=== PATIENT | female | born 1985 | race Caucasian/White ===

== ENCOUNTER 2016-11-19 16:59 | Emergency (ER) | payer MEDICAID ==
[~2016-11-19] VITALS: Wt 54.0 kg
[~2016-11-19 16:59] MED LIST: ATEN-51 PO; CIPR500T4 PO; HYDR-3498 PO; IBUP-1542 PO; NPH10OT BOTH EARS; PRED50TA PO; PROM6.25 PO
[2016-11-19] MEDS ORDERED: MECL-77 PO (18:02)
--- NOTE | 2016-11-19 18:04 | ERA ---
ER Documentation Chief Complaint Date/Time DATE: 11/19/16 TIME: 18:03 Chief Complaint dizziness today, HPI 31-year-old otherwise healthy female presenting with dizziness 2 days. Telugu -speaking and the [employer] Mis[employer] was the verification lead. Patient denies fever, ear pain , hearing loss, recent illness, medical history, new medications, change in diet , syncope, presyncope. Patient denies any alleviating or aggravating factors. Patient has no other complaints at this time. Patient is 3 weeks . ROS All systems reviewed and are negative except as per history of present illness. Medications Home Meds Active Scripts Meclizine Hcl* (Meclizine Hcl*) 25 Mg Tablet, 25 MG PO Q8H Y for DIZZINESS for 14 Days, TAB Prov:JOANIE TURNER PA-C 11/19/16 Hydrocodone Bit-Acetaminophen* (Dupree*) 5-325 Mg Tab, 1 TAB PO Q6 Y for PAIN, # 7 TAB Prov:TRUDY CHAPARRO PA-C 01/21/16 Ciprofloxacin Hcl* (Ciprofloxacin Hcl*) 500 Mg Tablet, 500 MG PO BID for 7 Days , TAB Prov:TRUDY CHAPARRO PA-C 01/21/16 Ibuprofen* (Motrin*) 600 Mg Tab, 600 MG PO Q6, #15 TAB Prov:JEFFREY FLOWERS NP 09/23/15 Promethazine w/Codeine* (Phenergan w/Codeine* Syrup) 5 Ml Syrup, 5 ML PO Q4H Y for COUGH for 7 Days, ML Prov:OSNJA CELESTE PA-C 08/10/15 Prednisone* (Prednisone*) 50 Mg Tablet, 50 MG PO DAILY, #5 TAB Prov:SONJA CELESTE PA-C 08/10/15 Neomycin/Polymyxin/Hydrocort* (Cortisporin* Otic) 10 Ml Susp, 4 DROP BOTH EARS QID for 7 Days, EA Prov:SONJA CELETSE PA-C 08/10/15 Reported Medications Atenolol* (Atenolol*) 25 Mg Tablet, 12.5 MG PO DAILY 03/19/12 Allergies Allergies: Coded Allergies: No Known Drug Allergies (Verified Allergy, Mild, 03/19/12) PMhx/Soc History of Surgery: No (DENIES ANY MEDICAL OR SURGICAL HX) Anesthesia Reaction: No Hx Neurological Disorder: No Hx Respiratory Disorders: No Hx Cardiac Disorders: Yes (htn) Hx Psychiatric Problems: No Hx Miscellaneous Medical Probl: No Hx Alcohol Use: No Hx Substance Use: No Hx Tobacco Use: No Physical Exam Vitals Vital Signs Date Time Temp Pulse Resp B/P Pulse Ox O2 Delivery O2 Flow Rate FiO2 11/19/16 17:00 98.1 82 18 124/84 99 Physical Exam Const: Well-appearing 31-year-old female in no acute distress sitting on exam table and smiling. Head: Atraumatic Eyes: Pterygium not obstructing pupil arising from the inferior nasal portion of the right eye. No nystagmus noted with finger H test. Apley's maneuver reproduced horizontal nystagmus suggesting right ear BPV and reproduce sensation of wanting to vomit and vertigo. EOMI intact bilaterally. PERRLA. ENT: Normal External Ears, Nose and Mouth. Neck: Full range of motion..~ No meningismus. Resp: Clear to auscultation bilaterally Cardio: Regular rate and rhythm, no murmurs. Capillary refill intact bilaterally. Pulses 2+ bilaterally. Abd: Soft, non tender, non distended. Normal bowel sounds Skin: No petechiae or rashes Back: No midline or flank tenderness Ext: No cyanosis, or edema Neur: Awake and alert. Cranial nerves tested and unremarkable. Taste and smell deferred. Psych: Normal Mood and Affect Procedures/MDM Patient was worked up and evaluated for dizziness. Patient signs and symptoms are most consistent with BPPV. Mariposa-Hallpike maneuver was attempted 2 and was unsuccessful. Patient will be given meclizine with a list of specialists to follow-up with including ENT and neurology. At this time a very little suspicion for intracranial mass or bleed or endangerment of hearing. Have discussed with the patient her current condition she verbally stated that she understands. Patient's vitals are stable. Patient will be discharged at this time with discharge instructions and return precautions. Medications spends: Meclizine 14 days. Departure Diagnosis: Primary Impression: Benign paroxysmal positional vertigo of right ear Condition: Stable Patient Instructions: Benign Positional Vertigo Additional Instructions: Follow up with your PCP within the next 1-3 days for a more thorough evaluation and a possible referral to a specialist. He is a handout given to 4 referral to specialist. Return the the emergency department immediately if symptoms worsen or change. If you have any questions regarding medications, ask your pharmacist or us before you leave. If any adverse reactions occur while taking your medications, discontinue the treatment and return to the emergency department immediately. Take your medications as directed. Do not drive while vertigo is active or at risk of vertigo attack. JOANIE TURNER PA-C Nov 19, 2016 18:04
== END 2016-11-19 19:12 | disposition home or self-care (01) ==
LOC: FTE 16:59
DX: O99.89 Other specified diseases and conditions complicating pregnancy, childbirth and the puerperium (principal); H81.11 Benign paroxysmal vertigo, right ear; O10.03 Pre-existing essential hypertension complicating the puerperium
CPT/HCPCS: 99283